=== PATIENT | female | born 1995 | race African-American/Black ===

== ENCOUNTER 2017-04-15 12:51 | Emergency (ER) | payer OTHER ==
[2017-04-15 12:59] VITALS: BP 111/70
[2017-04-15] MEDS ORDERED: Ketorolac INJ* 60 MG/2 ML VIAL IM ONE (14:56)
--- NOTE | 2017-04-15 16:32 | ED ---
Skin Complaint - HPI Summary HPI Summary: 21 female presents with complaints of a lump in her left groin area that began 1 week ago and has progressively worsened. She states that the lump has become bigger and exquisitely tender to touch. She denies any drainage and fever/ chills. Denies any urinary or genitalia issues. No other complaints and no PMHx. Has not taken any medications. Denies red streaks. - History of Current Complaint Chief Complaint: EDGeneral Time Seen by Provider: 04/15/17 13:04 Stated Complaint: LUMP ON LT LEG, PAIN Hx Obtained From: Patient Onset/Duration: Started Weeks Ago - 1, Worse Since Skin Exposure Onset/Duration: Weeks Ago - 1 Timing: Constant Onset Severity: Mild Current Severity: Moderate Pain Intensity: 8 Pain Scale Used: 0-10 Numeric Skin Location: Other: - left groin labia Character: Swelling, Redness, Raised, Painful Aggravating Symptom(s): Touch Alleviating Symptom(s): Nothing Associated Signs & Symptoms: Negative - Allergy/Home Medications Allergies/Adverse Reactions: Allergies Allergy/AdvReac Type Severity Reaction Status Date / Time No Known Allergies Allergy Verified 04/16/17 19:08 PMH/Surg Hx/FS Hx/Imm Hx Endocrine/Hematology History: Denies: Hx Diabetes Cardiovascular History: Denies: Hx Hypertension Respiratory History: Denies: Hx Asthma - Surgical History Surgery Procedure, Year, and Place: none - Immunization History Date of Tetanus Vaccine: UTD Immunizations Up to Date: Yes Infectious Disease History: No Infectious Disease History: Denies: Traveled Outside the [place] in Last 30 Days - Family History Known Family History: Positive: None - Social History Alcohol Use: None Substance Use Type: Reports: None Smoking Status (MU): Never Smoked Tobacco Review of Systems Constitutional: Negative Eyes: Negative Cardiovascular: Negative Respiratory: Negative Gastrointestinal: Negative Positive: Other - abscess All Other Systems Reviewed And Are Negative: Yes Physical Exam Triage Information Reviewed: Yes Vital Signs On Initial Exam: Initial Vitals Temp 97.4 F 04/15/17 12:56 HR: 93 O2: 100% Resp: 20 BP: 111/70 Vital Signs Reviewed: Yes Appearance: Positive: Well-Appearing, No Pain Distress, Well-Nourished Skin: Positive: Warm, Skin Color Reflects Adequate Perfusion, Dry, Erythema @ - and edema of left labia, exquisetly tender to touch, approximately 5cm length abscess and 1 cm wide. not draining, no open wounds, no discharge. no surrounding cellulitis. indurated and fluctuant in center. Head/Face: Positive: Normal Head/Face Inspection Eyes: Positive: Normal, Conjunctiva Clear ENT: Positive: Normal ENT inspection, Hearing grossly normal, TMs normal Dental: Negative: Cellulitis @, Cervical Lymphadenopathy Neck: Positive: Supple, Nontender, No Lymphadenopathy Respiratory/Lung Sounds: Positive: Clear to Auscultation, Breath Sounds Present. Negative: Rales, Rhonchi, Stridor Cardiovascular: Positive: Normal, RRR, Pulses are Symmetrical in both Upper and Lower Extremities. Negative: Murmur, Rub Abdomen Description: Positive: Nontender Bowel Sounds: Positive: Present Musculoskeletal: Positive: Normal, Strength/ROM Intact Neurological: Positive: Normal, Sensory/Motor Intact, Alert, Oriented to Person Place, Time Psychiatric: Positive: Normal AVPU Assessment: Alert Procedures - Incision and Drainage Site: left labia majora/groin Anesthesia: Local, Lidocaine Instrument(s): Scalpel Packing: Gauze Diagnostics - Vital Signs Vital Signs Temp Pulse Resp BP Pulse Ox 04/15/17 12:58 97.8 F 93 20 111/70 100 04/15/17 12:56 97.4 F - Laboratory Lab Statement: Any lab studies that have been ordered have been reviewed, and results considered in the medical decision making process. Course/Dx - Course Course Of Treatment: given toradol for pain and inflammation. I&D abscess and obtainned a wound culture. milky colored discharge, no complications. used sterile procedure and local anesthetic. patient tolerated proedure well. was packed with gauze. given oral keflex and bactrim to take at home for the next 14 days. Return to have packing removed/wound re-check on 04/17/17. Follow up with PCP. Aware of worsening signs and symptoms to watch out for. - Differential Diagnoses - Skin Complaint Differential Diagnoses: Abscess, Cellulitis, Contact Dermatitis, MRSA, Urticaria - Diagnoses Provider Diagnoses: Abscess of left genital labia Discharge - Discharge Plan Condition: Stable Disposition: HOME Prescriptions: Cephalexin CAP* [Keflex CAP*] 500 mg PO TID #24 cap Sulfamethox/Trimethoprim DS* [Bactrim DS 800/160 TAB*] 1 tab PO BID #24 tab Patient Education Materials: Abscess (ED), Incision and Drainage (ED) Referrals: Non Staff,Doctor [Primary Care Provider] - Additional Instructions: Do not remove packing, please leave alone and have removed at re-check. Keep area clean and dry, try to eliminate touching the area. Take prescribed medication as directed until entire dose is finished, even if symptoms improve. Please return to ED on Wednesday04/17/17 for re-check and to remove packing depending on how it looks. Take NSAIDs such as aleve or advil for pain and inflammation. Follow up with PCP. If anything worsens such as increasing pain, fever, chills, increasing redness please return immediately.
--- NOTE | 2017-04-19 09:19 | PN ---
Progress Note - Progress Note Note: Patient diagnosed with abscess and underwent I&D. Wound culture results obtained and negative for MRSA and Staph. Patient's culture did show prevotella bivia +1. Was d/c on keflex and bactrim. No further change or action needed at this time.
--- NOTE | 2017-04-20 18:18 | ED ---
Progress - Progress Note Progress Note: Pt's wound cx reveals prevotella bivia. Wound was I&D and pt started in anbx. She returned to ED for packing change 04/19 - per pt, wound is improving and she agrees to complete anbx which she states she's been taking. Advised to return to ED if wound worsens, she develops fever/chills, N/V/D. LEWIS HONEYCUTT Course/Dx - Course Course Of Treatment: given toradol for pain and inflammation. I&D abscess and obtainned a wound culture. milky colored discharge, no complications. used sterile procedure and local anesthetic. patient tolerated proedure well. was packed with gauze. given oral keflex and bactrim to take at home for the next 14 days. Return to have packing removed/wound re-check on 04/17/17. Follow up with PCP. Aware of worsening signs and symptoms to watch out for. - Diagnoses Provider Diagnoses: Abscess of left genital labia
== END 2017-04-15 16:50 | disposition home or self-care (01) ==
LOC: ED 12:51
DX: N76.4 Abscess of vulva (principal)
CPT/HCPCS: 56405; 87070; 87076; 87185; 87205; 87640; 87641; 96372; 99282; J1885

== ENCOUNTER 2017-04-19 12:41 | Emergency (ER) | payer OTHER ==
[2017-04-19 14:32] VITALS: BP 116/61
--- NOTE | 2017-04-19 16:17 | ED ---
ED Suture/Wound Check - HPI Summary HPI Summary: 21 female presents for wound re-check and packing removal after having a left groin/labial abscess drained 5 days ago. Patient states it has improved significantly and no longer is causing her pain. Packing is still in place. No signs of infection or complications. Has been taking antibiotics as prescribed. Denies fever/chills No other complaints at this time. No PMHx. Admits to some minimal drainage, but has kept it covered. - History Of Current Complaint Chief Complaint: EDLacSutureRecheck Stated Complaint: LT LOWER EXTREMITY Time Seen by Provider: 04/19/17 14:52 Hx Obtained From: Patient Surgical Site: left groin/labia Pain Intensity: 0 Pain Scale Used: 0-10 Numeric Procedure Type: I&D Surgery Date: 04/15/17 - Allergies/Home Medications Allergies/Adverse Reactions: Allergies Allergy/AdvReac Type Severity Reaction Status Date / Time No Known Allergies Allergy Verified 04/16/17 19:08 PMH/Surg Hx/FS Hx/Imm Hx Endocrine/Hematology History: Denies: Hx Diabetes Cardiovascular History: Denies: Hx Hypertension Respiratory History: Denies: Hx Asthma - Surgical History Surgery Procedure, Year, and Place: none - Immunization History Date of Tetanus Vaccine: UTD Immunizations Up to Date: Yes Infectious Disease History: Denies: Traveled Outside the [place] in Last 30 Days - Family History Known Family History: Positive: None - Social History Alcohol Use: None Substance Use Type: Reports: None Smoking Status (MU): Never Smoked Tobacco Review of Systems Constitutional: Negative Cardiovascular: Negative Respiratory: Negative Musculoskeletal: Negative Positive: Other - wound check, abscess All Other Systems Reviewed And Are Negative: Yes Physical Exam Triage Information Reviewed: Yes Vital Signs On Initial Exam: Initial Vitals Temp Pulse Resp BP Pulse Ox 97.9 F 74 17 121/69 100 04/19/17 12:44 04/19/17 12:44 04/19/17 12:44 04/19/17 12:44 04/19/17 12:44 Vital Signs Reviewed: Yes Appearance: Positive: Well-Appearing, No Pain Distress, Well-Nourished Skin: Positive: Warm, Skin Color Reflects Adequate Perfusion, Dry, Other - abscess appears to have decreased significantly, no longer raised, small surround firm area around incised area from I&D. non tender. packing removed and minmal drainage. appears to be healing nicely. no erythema, edema or warmth noted. no complications during removal of packing Head/Face: Positive: Normal Head/Face Inspection Eyes: Positive: Normal, Conjunctiva Clear ENT: Positive: Normal ENT inspection, Hearing grossly normal Neck: Positive: Supple, Nontender Respiratory/Lung Sounds: Positive: Clear to Auscultation, Breath Sounds Present. Negative: Rales, Rhonchi, Stridor, Wheezes Cardiovascular: Positive: Normal, RRR, Pulses are Symmetrical in both Upper and Lower Extremities Abdomen Description: Positive: Nontender, Soft Bowel Sounds: Positive: Present Musculoskeletal: Positive: Normal, Strength/ROM Intact Neurological: Positive: Normal, Sensory/Motor Intact, Alert, Oriented to Person Place, Time Psychiatric: Positive: Normal AVPU Assessment: Alert Diagnostics - Vital Signs Vital Signs Temp Pulse Resp BP Pulse Ox 04/19/17 14:30 97.4 F 65 17 116/61 100 04/19/17 12:44 97.9 F 74 17 121/69 100 - Laboratory Lab Statement: Any lab studies that have been ordered have been reviewed, and results considered in the medical decision making process. Course/Dx - Course Course Of Treatment: packing was removed from abscess I&D site without complication. due to appearance of abscess significantly improving and no sign of infection, no further packing was necessary. re-check in 5-7 days or sooner if new symptoms develop or it appears to be worsening/not healing. Follow up with pcp. Aware of worsening symptoms to watch out for. Continue antibiotics as directed until entire dose is finished. - Differential Diagnoses Differential Diagnoses: Abscess, Cellulitis, Healing Wound, Other - Clinical Impression Provider Diagnoses: Encounter for wound re-check Discharge - Discharge Plan Condition: Stable Disposition: HOME Patient Education Materials: Abscess Follow-up (ED) Referrals: Non Staff,Doctor [Primary Care Provider] - Additional Instructions: Keep an eye out for worsening symptoms and infection. Continue antibiotics until entire dose is finished. Follow up with PCP or return to ED to have checked within the next 5-7 days or sooner depending on your symptoms. Sooner if worsening symptoms develop. Keep clean and dry. Continue to let drain.
== END 2017-04-19 16:42 | disposition home or self-care (01) ==
LOC: ED 12:41
DX: L02.214 Cutaneous abscess of groin (principal)
CPT/HCPCS: 99281

== ENCOUNTER 2018-08-11 17:49 | Emergency (ER) | payer SELFPAY ==
--- NOTE | 2018-08-11 19:19 | ED ---
GI/ HPI - HPI Summary HPI Summary: 23-year-old female presents for a test. She denies any pain. She states her LMP in June. She denies any abnormal vaginal discharge. No bleeding. No pelvic pain. No abdominal pain. No nausea no vomiting. No fevers. Has no medical conditions. - History of Current Complaint Chief Complaint: EDGeneral Time Seen by Provider: 08/11/18 18:04 Stated Complaint: TEST Pain Intensity: 0 - Allergy/Home Medications Allergies/Adverse Reactions: Allergies Allergy/AdvReac Type Severity Reaction Status Date / Time No Known Allergies Allergy Verified 04/16/17 19:08 Home Medications: Home Medications NK [No Home Medications Reported] 08/11/18 [History Confirmed 08/11/18] PMH/Surg Hx/FS Hx/Imm Hx Endocrine/Hematology History: Denies: Hx Diabetes Cardiovascular History: Denies: Hx Hypertension Respiratory History: Denies: Hx Asthma - Surgical History Surgery Procedure, Year, and Place: none - Immunization History Date of Tetanus Vaccine: UTD Infectious Disease History: No Infectious Disease History: Denies: Traveled Outside the [place] in Last 30 Days - Family History Known Family History: Positive: None - Social History Alcohol Use: None Substance Use Type: Reports: None Smoking Status (MU): Never Smoked Tobacco Review of Systems Negative: Fever Negative: Chest Pain Negative: Shortness Of Breath Positive: Other - late period. Negative: Abdominal Pain All Other Systems Reviewed And Are Negative: Yes Physical Exam Triage Information Reviewed: Yes Vital Signs On Initial Exam: Initial Vitals Temp Pulse Resp BP Pulse Ox 97.6 F 80 15 119/66 100 08/11/18 17:56 08/11/18 17:56 08/11/18 17:56 08/11/18 17:56 08/11/18 17:56 Vital Signs Reviewed: Yes Appearance: Positive: Well-Appearing Skin: Positive: Warm, Dry Head/Face: Positive: Normal Head/Face Inspection Eyes: Positive: Normal, Conjunctiva Clear ENT: Positive: Pharynx normal Respiratory/Lung Sounds: Positive: Clear to Auscultation, Breath Sounds Present Cardiovascular: Positive: Normal, RRR Abdomen Description: Positive: Nontender, Soft Bowel Sounds: Positive: Present Musculoskeletal: Positive: Normal Neurological: Positive: Normal Psychiatric: Positive: Normal Diagnostics - Vital Signs Vital Signs Temp Pulse Resp BP Pulse Ox 08/11/18 17:56 97.6 F 80 15 119/66 100 - Laboratory Lab Results: Lab Results 08/11/18 Range/Units 18:22 Beta HCG, Quant 194087.00 mIU/mL Lab Statement: Any lab studies that have been ordered have been reviewed, and results considered in the medical decision making process. GIGU Course/Dx - Course Course Of Treatment: 23-year-old female presents for a test. She denies any pain. She states her LMP in June. She denies any abnormal vaginal discharge. No bleeding. No pelvic pain. No abdominal pain. No nausea no vomiting. No fevers. Has no medical conditions. On exam nontender abdomen. HCG is positive for . Gave results patient. Patient will [facility] with [facility] or [facility]. Patient understands and agrees with plan. - Diagnoses Differential Diagnoses - Female: , Urinary Tract Infection, Other - dysmenorrhea Provider Diagnoses: Discharge - Sign-Out/Discharge Documenting (check all that apply): Patient Departure - Discharge Plan Condition: Good Disposition: HOME Patient Education Materials: First Trimester (ED) Referrals: Non Staff,Doctor [Primary Care Provider] - Additional Instructions: Follow up with ob Return to ED if develop any new or worsening symptoms - Billing Disposition and Condition Condition: GOOD Disposition: Home
[2018-08-11 20:46] VITALS: BP 127/74
== END 2018-08-11 19:32 | disposition home or self-care (01) ==
LOC: ED 17:49
DX: N91.2 Amenorrhea, unspecified (principal); Z32.01 Encounter for pregnancy test, result positive
CPT/HCPCS: 36415; 84702; 99282

== ENCOUNTER 2019-02-10 13:30 | Inpatient (IN) | payer OTHER ==
--- NOTE | 2019-02-10 14:43 | PN ---
Progress Note - Progress Note Date of Service: 02/10/19 Note: S: Reports UCs beginning at 0300 today, now about 3-5 minutes apart. Breathing through UCs, stoic and concentrating. O: B/P: 121/67, P: 88, RR: 20, T: 98.2 FHR: baseline 150, moderate variability, +accelerations, no decelerations UCs: q 3-4 minutes, moderate to palpation VE: attempted VE, patient grabbed my wrist and pulled my hand out. States too uncomfortable at this time. A: IUP at 38 6/7 weeks Category 1 FHR, no evidence of metabolic acidemia False labor vs. active labor. Unable to determine cervical status, not fully dilated but doubt cx closed. P: Will observe. Aida plans to get in tub for awhile for comfort. Discussed evaluation of cervix in 1-2 hours or sooner as needed, she agrees with this plan
[2019-02-10] MEDS ORDERED: Buffered Lidocaine 1% SYRIN* 1 ML/SYRINGE INTRADERM ONE (15:02)
[2019-02-10] MEDS ORDERED: Lactated Ringers 1000 ML Bag* 1,000 ML IV ONE (15:02)
[2019-02-10] MEDS ORDERED: Lactated Ringers 1000 ML Bag* 1,000 ML IV SCH ×2 (16:00→18:00)
--- NOTE | 2019-02-10 16:01 | HP ---
General Information - Reason for Visit Pt arrived to unit in active labor. - General Information Maternal Age: 23 Grav: 1 Para: 0 SAB: 0 IEA: 0 Estimated Due Date: 02/18/19 Determined By: Early Ultrasound Gestational Age in Weeks/Days: 38 6/7 Maternal Blood Type and Rh: O Positive - Results this Serology/RPR Result: Non-Reactive Rubella Result: Immune HBsAg Result: Negative HIV Result: Negative GBS Culture Result: Negative Past Medical History Delivery History: See Records - Primigravida Pertinent Past Medical History: See Records - back pain Pertinent Past Surgical History: None Pertinent Family History: See Records - Antepartal Records Antepartal Records: Reviewed, Uncomplicated Review of Systems Constitutional: Uncomfortable CV Complaint: No Respiratory: Shortness of Breath: No Gastrointestinal: No Nausea/Vomiting, Normal Bowel Movement Genitourinary: No Dysuria, No Bleeding, No Leaking Fluid Musculoskeletal: No Epigastric Pain, Contractions Neurological: No Headache, No Visual Changes Movement: Normal Exam Allergies/Adverse Reactions: Allergies No Known Allergies Allergy (Verified 04/16/17 19:08) T-98.2, P-89, R-20, BP-121/67, )2- 100% - Measurements Height: 5 ft 7 in Weight: 88.451 kg Weight in lbs: 195.940255 Body Mass Index (BMI): 30.5 Pre- Weight: 63.503 kg Weight Gained This : 55 lbs and 0 ozs - Exam Breast: Breast Exam Deferred CVA: No CVA Tenderness Extremities: No Edema Heart: Normal Rhythm/Heart Sounds HEENT: No Significant Findings Lungs: Clear Bilaterally Rectal: Rectal Exam Deferred Reflexes: DTR 2+ Thyroid: No Thyromegaly - Abdominal Exam Abdomen Exam: Non-Tender, Fundal Height Consistent with Dates - Ultrasound/Biophysical Profile Ultrasound Status: Not Done Targeted Exam Findings See L&D Outpatient Visit Provider Note for Findings: Yes Estimated Weight: 7# Cervical Exam: 8cm Effacement: 100% Station: 0 Presenting Part: Vertex Membrane Status: Intact Bleeding/Discharge: Bloody Show EFM Findings - External Monitor Findings Baseline Heart Rate: 145 External Monitor Findings: Accelerations Present, No Pattern of Variable or Late Decelerations, Variability Moderate, Baseline Stable Contractions: Regular, Strong, 45-90 Seconds Contraction Frequency: 3 minutes Assessment/Plan - Assessment 23 year old at 38 6/7 weeks gestation in active labor with intact membranes , no evidence of acidemia - Plan Plan: Admit - Anticipate Vaginal Delivery - Date/Time of Admission Date of Admission: 02/10/19 Time of Admission: 15:00
[2019-02-10] MEDS ORDERED: Dibucaine 1% 28.35 GM TUBE PR PRN (17:03)
[2019-02-10] MEDS ORDERED: Glycerin ADULT SUPP PR PRN (17:03)
[2019-02-10] MEDS ORDERED: Witch Hazel PAD* JAR TOPICAL PRN (17:03)
--- NOTE | 2019-02-10 19:29 | PROCNOTE ---
[facility] OB: Delivery Note - Delivery A Date of : 02/10/19 Time of : 16:07 [place] Sex: Female Weight at : 6 lb 3 oz Score 1 Minute: 9 Score 5 Minutes: 9 Gestational Age in Weeks and Days at Delivery: 38 Weeks and 6 Days Delivery Method: Spontaneous Vaginal Labor: Spontaneous Did Patient attempt ?: N/A, No Previous Amniotic Fluid: Clear Anesthesia/Analgesia: None Delivered By: Katerin Acosta - Nursery Level of Nursery: Regular/Bedside - Perineum Perineal Injury: 1st Degree Perineal Repair: By Delivering Practioner - Events Delivery Events of Note: None Apply - Risk for Falls Other Risk for Falls: none - Additional Delivery Notes Additional Delivery Notes: 23 yo at 38 6/7 weeks with spontaneous labor progressed to complete. SROM of clear fluid at 1530, began pushing at 1548. Delivery of liveborn female OA to GEORGE at 1607. Loose nuchal x 1 reduced, shoulders delivered easily with next push. to mom's chest, dried and stimulated with spontaneous cry. Apgars 9 and 9. Cord ceased pulsating, clamped x 2 and cut by mother's friend. Intact placenta followed at 1613. Gush of fluid noted, fundus firm with massage. Vagina and perineum inspected and 1st degree perineal laceration noted, repaired in the usual fashion. Infant and mother in stable condition at time of note, EBL = 400 ml.
[2019-02-10] MEDS: Docusate CAP* 100 MG PO SCH (20:05)
[2019-02-10] MEDS: Acetaminophen TAB* 325 MG PO PRN (20:05)
[2019-02-10] MEDS ORDERED: Lidocaine 1% INJ* 10 MG/ML 30 ML SDV ONE (21:10)
[2019-02-11 06:57] LABS: ABS Basophils 0 10^3/ul (0-0.2); ABS Eosinophils 0 10^3/ul (0-0.6); ABS Lymphocytes 1.8 10^3/ul (1.0-4.8); ABS Monocytes 1.5 10^3/ul (0-0.8); ABS Neutrophils 12.2 10^3/ul (1.5-7.7); ABS Nucleated RBC 0 10^3/ul; Eosinophil % 0.1 %; Hematocrit 31 % (33-41); Hemoglobin 10.1 g/dL (12.0-16.0); Lymphocyte % 11.4 %; Mean Corpuscular HGB Conc 33 g/dL (31-36); Mean Corpuscular Hemoglobin 28 pg (27-31); Mean Corpuscular Volume 84 fL (80-97); Mean Platelet Volume 8.5 fL (7.4-10.4); Nucleated Red Blood Cells % 0; Platelet Count 217 10^3/uL (150-450); Red Blood Count 3.63 10^6 /uL (3.70-4.87); Red Cell Distribution Width 13 % (10.5-15); White Blood Count 15.4 10^3/uL (3.5-10.8)
[2019-02-11] MEDS: Docusate CAP* 100 MG PO SCH ×3 (08:27→20:58)
[2019-02-11] MEDS: Ibuprofen TAB* 600 MG PO PRN ×2 (08:27→14:37)
[2019-02-11] MEDS: Ferrous Gluconate TAB* 324 MG TAB PO SCH ×2 (11:22→20:55)
[2019-02-11] MEDS ORDERED: Nicotine Inhaler* 10 MG AMP INH PRN (12:40)
[2019-02-11] MEDS ORDERED: Mouth Piece, Nicotine* 1 EACH CARTRIDGE INH ONE (14:00)
[2019-02-11] MEDS ORDERED: Promethazine INJ(RESTRICTED)* 25 MG/ML 1 ML VIAL IV PRN (14:58)
[2019-02-11] MEDS ORDERED: Nalbuphine* 10 MG/ML 1 ML VIAL IV PRN (14:58)
[2019-02-11] MEDS: Acetaminophen TAB* 325 MG PO PRN (20:58)
[2019-02-12] MEDS: Ferrous Gluconate TAB* 324 MG TAB PO SCH (09:30)
[2019-02-12] MEDS: Docusate CAP* 100 MG PO SCH (09:42)
[2019-02-12 09:54] VITALS: BP 117/67
== END 2019-02-12 11:51 | disposition home or self-care (01) | DRG 560 ==
LOC: MCHOBOUT 13:30 → MCHOB 15:00
PROVIDERS: ADMIT Midwife; ATTEND Midwife
PROC: 10E0XZZ Delivery of Products of Conception, External Approach (ICD-10-PCS; principal; 2019-02-10)
PROC: 4A1HXCZ Monitoring of Products of Conception, Cardiac Rate, External Approach (ICD-10-PCS; 2019-02-10)
PROC: 0HQ9XZZ Repair Perineum Skin, External Approach (ICD-10-PCS; 2019-02-10)
DX: O69.81X0 Labor and delivery complicated by cord around neck, without compression, not applicable or unspecified (principal); Z37.0 Single live birth; O70.0 First degree perineal laceration during delivery; Z3A.38 38 weeks gestation of pregnancy
CPT/HCPCS: 36415; 85025; A9270-GY

== ENCOUNTER 2022-04-02 15:03 | Inpatient (IN) ==
[2022-04-02] MEDS ORDERED: Buffered Lidocaine 1% SYRIN 1 ml INTRADERM ONE (16:36)
[2022-04-02] MEDS ORDERED: Lactated Ringers 1000 ml BAG 1,000 ML IV ONE (16:36)
[2022-04-02] MEDS ORDERED: Lactated Ringers 1000 ml BAG 1,000 ML IV SCH ×2 (17:00→21:00)
[2022-04-02 18:46] LABS: Urine Benzodiazepine Screen None Detected (None Detect); Urine Cannabinoids Screen Presumptive Positive (None Detect); Urine Opiates Screen None Detected (None Detect)
[2022-04-02] MEDS ORDERED: Dibucaine 1% OINT 28.35 GM TUBE PR PRN (20:30)
[2022-04-02] MEDS ORDERED: Glycerin ADULT 2.4 gm SUPP PR PRN (20:30)
[2022-04-02] MEDS ORDERED: Witch Hazel PAD JAR TOPICAL PRN (20:30)
[2022-04-02] MEDS ORDERED: Oxytocin 10 UNITS/ML 1 ML VIAL ONE (22:42)
[2022-04-03 07:35] LABS: ABS Basophils 0.1 10^3/ul (0-0.2); ABS Lymphocytes 2.4 10^3/ul (1.0-4.8); ABS Monocytes 0.8 10^3/ul (0-0.8); ABS Neutrophils 7.5 10^3/ul (1.5-7.7); Eosinophil % 0.2 %; Hematocrit 35 % (35-47); Hemoglobin 11.4 g/dL (12.0-16.0); Lymphocyte % 22.7 %; Mean Corpuscular HGB Conc 33 g/dL (31-36); Mean Corpuscular Hemoglobin 27 pg (27-31); Mean Corpuscular Volume 84 fL (80-97); Mean Platelet Volume 9.5 fL (7.4-10.4); Nucleated Red Blood Cells % 0.1; Platelet Count 200 10^3/uL (150-450); Red Blood Count 4.17 10^6 /uL (3.70-4.87); Red Cell Distribution Width 15 % (10-15); White Blood Count 10.8 10^3/uL (3.5-10.8)
[2022-04-04 08:22] VITALS: BP 115/54
== END 2022-04-04 13:13 | disposition home or self-care (01) | DRG 560 ==
LOC: MCHOBOUT 15:03 → MCHOB 16:27
PROVIDERS: ADMIT Midwife; ATTEND Midwife

== ENCOUNTER 2023-07-11 08:36 | Inpatient (IN) ==
[2023-07-11] MEDS ORDERED: Lidocaine 1% VIAL 10 MG/ML 30 ML VIAL INJ PRN (09:15)
[2023-07-11] MEDS ORDERED: Buffered Lidocaine 1% SYRIN 1 ml INTRADERM ONE (09:15)
[2023-07-11] MEDS ORDERED: Lactated Ringers 1000 ml BAG 1,000 ML IV ONE (09:15)
[2023-07-11] MEDS ORDERED: Promethazine INJ(RESTRICTED) 25 MG/ML 1 ml VIAL IV PRN (09:15)
[2023-07-11] MEDS ORDERED: Lactated Ringers 1000 ml BAG 1,000 ML IV SCH ×2 (10:00→14:00)
[2023-07-11 10:21] LABS: Urine Benzodiazepine Screen None Detected (None Detect); Urine Opiates Screen None Detected (None Detect)
[2023-07-11] MEDS ORDERED: Oxytocin 10 UNITS/ML 1 ML VIAL IM ONE (13:25)
[2023-07-11] MEDS ORDERED: Witch Hazel PAD JAR TOPICAL PRN (13:25)
[2023-07-11] MEDS: Dibucaine 1% OINT 28.35 GM TUBE PR PRN (14:04)
[2023-07-11] MEDS ORDERED: Ondansetron ODT 4 mg TAB 4 MG TAB SL PRN (16:20)
[2023-07-12 06:59] LABS: ABS Eosinophils 0.1 10^3/uL (0.0-0.5); ABS Monocytes 0.8 10^3/uL (0.0-0.9); ABS Neutrophils 6.6 10^3/uL (1.5-7.6); ABS Nucleated RBC 0.02 10^3/ul; Eosinophil % 1.2 %; Hematocrit 29.7 % (35-45); Hemoglobin 9.9 g/dL (11.5-14.3); Lymphocyte % 28.5 %; Mean Corpuscular Hemoglobin 27.3 pg (27-33); Mean Corpuscular Hgb Conc 33.4 g/dL (31-36); Mean Corpuscular Volume 81.7 fL (80-97); Mean Platelet Volume 9.4 fL (7.5-11.2); Nucleated Red Blood Cells % 0.2 /100 WBC (0.0-0.4); Platelet Count 219 10^3/uL (150-450); Red Blood Count 3.64 10^6/uL (3.63-4.92); Red Cell Distribution Width 14.6 % (12-17); White Blood Count 10.5 10^3/uL (3.8-11.8)
[2023-07-12] MEDS: Dibucaine 1% OINT 28.35 GM TUBE PR PRN (11:27)
[2023-07-12 11:43] VITALS: BP 124/68
== END 2023-07-12 17:05 | disposition home or self-care (01) | DRG 807 ==
LOC: MCHOBOUT 08:36 → MCHOB 09:13
PROVIDERS: ADMIT Registered Nurse; ATTEND Registered Nurse